=== PATIENT | female | born 1980 | race Two or more races ===

== ENCOUNTER 2020-04-14 08:04 | Outpatient (CLI) | payer OTHER | END 2020-04-14 08:16 | disposition home or self-care (01) | LOC: RX STUDY 08:04 | DX: N70.11 Chronic salpingitis (principal) ==

== ENCOUNTER 2024-07-21 09:16 | Outpatient (CLI) | payer OTHER | END 2024-07-21 09:29 | disposition home or self-care (01) | LOC: SONOGRAMA 09:16 | PROVIDERS: ATTEND Specialist | DX: N18.9 Chronic kidney disease, unspecified (principal) ==